=== PATIENT | male | born 1965 | race Caucasian/White ===

== ENCOUNTER → 2021-10-23 12:11 | Outpatient (BNVA) | payer BC, SELFPAY | PROVIDERS: Visit Provider Family Medicine | DX: R73.9 Hyperglycemia, unspecified (principal); Z00.00 Encounter for general adult medical examination without abnormal findings | CPT/HCPCS: 80053; 80061; 83036 ==

== ENCOUNTER 2022-01-23 06:04 | Day surgery (SDC) | payer BC, SELFPAY ==
[2022-01-21 13:39] VITALS: BMI 25.8
[2022-01-23 06:16] VITALS: BP 150/90; PULSE 50; RESP 18; TEMP 35.8; O2SAT 99
[2022-01-23] MEDS: sodium chloride 0.9% 1,000 ML 30 ML IV (06:26)
--- NOTE | 2022-01-23 06:52 | ANES.PREANE2 ---
Pre-Anesthetic Assessment Height/Weight: Height 1.73 m Weight 77.111 kg Temp Pulse Resp BP Pulse Ox O2 Del Method 96.5 F L 50 L 18 150/90 99 01/23/22 06:16 01/23/22 06:16 01/23/22 06:16 01/23/22 06:16 01/23/22 06:16 01/23/22 06:16 Preop Diagnosis: screening Operation Date: 01/23/22 07:30 Proposed Procedures p Colonoscopy 08515,Z12.11(Not Applicable) - Tc Lara DO Familial anesthetic complications: none Last intake: Intake Last Liquid Date 01/22/22 Last Liquid Time 21:30 Last Solid Date 01/21/22 Last Solid Time 18:00 Social Alcohol (1x a week or less.) and No alcohol Airway Submandibular: within normal limits Cervical ROM: within normal limits Mallampati: Class II Dentition: full Pulmonary None reported CV/HEM None reported None reported Hepatic None reported GI None reported Metabolic None reported Musc/skel None reported Neuropsych None reported Anesthetic Plan ASA status: 1 Anesthesia: MAC Other: METS >10 marathon runner. Medications/Allergies Home Medications Medication Instructions Recorded Confirmed Last Taken Type No Known Home Medications 01/21/22 01/21/22 Unknown History Allergies Allergy/AdvReac Type Severity Reaction Status Date / Time No Known Allergies Allergy Unverified 10/23/21 09:54 Current Medications Generic Name Dose Route Start Last Admin Trade Name Freq PRN Reason Stop Dose Admin Sodium Chloride 1,000 mls @ 30 mls/hr 01/23/22 06:15 01/23/22 06:26 Sodium Chloride 0.9% IV 01/24/22 06:14 30 mls/hr .Q24H NICHOLE Administration Data Anesthesia Cardiac Studies: No Data to Display
--- NOTE | 2022-01-23 07:34 | P.HP_ITS ---
Providers/Chief Complaint Primary Care Provider: Prateek Mckinley DO Chief Complaint: Need for colon cancer screening History of Present Illness Nimesh Quinn is a 56 year old male here for his first colon cancer screening. He has no abdominal complaints. Review of Systems General: Reports: 10 or more systems reviewed and unremarkable except in HPI and below Medications/Allergies Home Medications Medication Instructions Recorded Confirmed Last Taken Type No Known Home Medications 01/21/22 01/21/22 Unknown History Allergies Allergy/AdvReac Type Severity Reaction Status Date / Time No Known Allergies Allergy Unverified 10/23/21 09:54 Vitals/I&O/Wt Last Vital Signs Temp 96.5 F L 01/23/22 06:16 Pulse 50 L 01/23/22 06:16 Resp 18 01/23/22 06:16 BP 150/90 01/23/22 06:16 Pulse Ox 99 01/23/22 06:16 O2 Del Method 01/23/22 06:16 Weight last 48 hrs Weight 170 lb Physical Exam Narrative: General : Patient is well developed , no acute distress, oriented x3 Head : Normal cephalic, a-traumatic. Ears : Pinnae and external canal are normal. Hearing is normal. Eyes : PERRLA, Sclera and injection are normal. No conjunctival discharge. Nose : Mucous membranes are without erythema. Throat : buccal mucosa is normal, gums are without significant recession or hypertrophy. Lungs : Equal chest rise bilaterally, no use of accessory muscles, trachea is midline. Cor : Rate and rhythm are normal. Abdomen : Soft, ND, NT, no g/r/m Extremities : No edema, no cyanosis or clubbing, dorsalis pedis pulses are present bilaterally, non-tender to palpation of calves. Upper extremities are normal bilaterally. Back : non-tender to palpation, no CVA tenderness. Neuro : CN II - XII intact, Upper and lower extremities have equal and full strength A&P Assessment and plan (1) Colon cancer screening: Plan Colonoscopy The risks and benefits of the procedure, including bleeding, infection, intestinal perforation requiring surgery, missed lesion, or explained to the patient. He is understanding of the risks and wishes to proceed. Attestations Medical Necessity Statement*: Home Coding Level of Care Code Acute Juvenile Detention Officer for g Fwd Diagnoses Colon cancer screening Z12.11
[2022-01-23 07:57] VITALS: BP 104/60; PULSE 44; RESP 14; TEMP 36.1; O2SAT 100
[2022-01-23 08:06] VITALS: BP 122/75; PULSE 44; RESP 18; O2SAT 100
--- NOTE | 2022-01-23 14:05 | ANE.PACU2 ---
Inpatient post-anesthesia follow up: Airway intact: Yes Vital signs: Temperature 97.0 F Pulse Rate 44 Respiratory Rate 18 Blood Pressure 122/75 Pulse Oximetry 100 Oxygen Delivery Me thod Room Air Oxygen Flow Rate 3 Fraction of Inspir ed Oxygen Hydration adequate: Yes Nausea and vomiting: No Pain level: 1 Mental status: Baseline
== END 2022-01-23 08:28 | disposition home or self-care (01) ==
PROVIDERS: PCP Family Medicine; Visit Provider Surgery
PROC: 0DJD8ZZ Inspection of Lower Intestinal Tract, Via Natural or Artificial Opening Endoscopic (ICD-10-PCS; CPT 45378; principal; 2022-01-23 07:30)
DX: Z12.11 Encounter for screening for malignant neoplasm of colon (principal)
CPT/HCPCS: 45378; J1100; J2704; J7030

== ENCOUNTER → 2023-08-25 09:39 | Outpatient (BNVA) | payer BC, SELFPAY | PROVIDERS: PCP Family Medicine; Visit Provider Family Medicine | DX: Z00.00 Encounter for general adult medical examination without abnormal findings (principal); Z12.5 Encounter for screening for malignant neoplasm of prostate; Z51.81 Encounter for therapeutic drug level monitoring; E55.9 Vitamin D deficiency, unspecified; Z13.220 Encounter for screening for lipoid disorders | CPT/HCPCS: 80053; 80061; 82306; 84153; 85025 ==

== ENCOUNTER → 2024-08-03 09:53 | Outpatient (BNVA) | payer BC, SELFPAY | PROVIDERS: PCP Family Medicine; Visit Provider Family Medicine | DX: Z51.81 Encounter for therapeutic drug level monitoring (principal); Z00.00 Encounter for general adult medical examination without abnormal findings; Z13.6 Encounter for screening for cardiovascular disorders; Z12.5 Encounter for screening for malignant neoplasm of prostate | CPT/HCPCS: 80053; 80061; 84153; 85025 ==